=== PATIENT | male | born 1940 ===

== ENCOUNTER 2020-12-31 10:03 | Emergency (ER) | payer MEDICARE, OTHER ==
[2020-12-31] MEDS: Sodium Chloride 0.9% 1,000 ML IV ONE ×2 (10:55→13:17)
--- NOTE | 2020-12-31 11:28 | CT ---
DATE OF SERVICE: 12/31/2020 CLINICAL DATA: Epigastric Pain Unenhanced chest CT: The multi slice acquisition through the chest without IV contrast was performed. Comparison is made to a prior exam dated 29 October 2019. Motion artifact degrades study quality. The 2.0 cm soft tissue nodule noted within the right middle lobe is again seen. It is unchanged in size and appearance from the prior study. There are multiple nodules in the left lower lobe that were present on the prior exam and are unchanged. No new pulmonary nodules. There are mild atelectatic changes in the dependent portion of both lungs and in both lung bases. The lungs are otherwise clear. No areas of consolidation. There is a linear density within the trachea just above the domenic most likely representing mucus. No pneumothorax. No pleural effusion. The heart size is normal. There are mild coronary artery calcifications. No significant pericardial effusion. The no aortic aneurysm. No hilar or mediastinal adenopathy. There is a small hiatal hernia. Impression: Stable chest CT Unenhanced abdomen and pelvic CT: Multi slice axial acquisition without IV contrast was performed. No priors. The unenhanced liver appears normal. No focal hepatic lesions. The gallbladder is abnormal. The gallbladder wall appears thickened. Questionable noncalcified gallstones. Gallbladder ultrasound is recommended. The spleen appears normal. The pancreas appears normal. There is soft tissue fullness of both adrenal glands suggesting adrenal hyperplasia. They appear unchanged from prior chest CT dated 29 October 2019. There is atrophy of both kidneys. No nephrocalcinosis or nephrolithiasis. No hydronephrosis or hydroureter. The bladder is fluid filled. It appears normal. Prostate is mildly enlarged. There is a metallic clip within the prostate. There is gastric wall thickening in the body and fundus of the stomach. This is probably related to nondistention. Gastritis or an infiltrating process should be considered. There is a small hiatal hernia. There is mural thickening of the distal esophagus suggesting esophagitis. The appendix is not dilated. No evidence of appendicitis. There is diverticulosis of the transverse, descending, and sigmoid colon. No evidence of diverticulitis. No free air. No free fluid. No dilated loops of bowel. No adenopathy. No aortic aneurysm. 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 No other significant findings. MTDD
[2020-12-31] MEDS ORDERED: Pantoprazole 80 MG in Sodium Chloride 0.9% 100 ML IV ONE (11:47)
[2020-12-31] MEDS ORDERED: Enoxaparin 150 MG/1 ML Syringe SUBCUT SCH (12:00)
[2020-12-31] MEDS ORDERED: Piperacillin/Tazobactam 3.375 GM in Sodium Chloride 0.9% 50 ML IV SCH (12:15)
[2020-12-31] MEDS ORDERED: Morphine 2 MG/ML SYRINGE IVPUSH ONE ×2 (14:21→17:00)
[2020-12-31] MEDS ORDERED: Morphine 2 MG/ML SYRINGE ONE ×2 (14:30→17:18)
[2020-12-31] MEDS ORDERED: Sodium Chloride 0.9% 1,000 ML IV SCH (14:45)
[2020-12-31] MEDS ORDERED: Ondansetron 4 MG/2 ML SDV IVPUSH ONE (17:00)
--- NOTE | 2020-12-31 17:04 | EDM.PDOC ---
ED HPI GENERAL MEDICAL PROBLEM - General Chief Complaint: General Stated Complaint: FELL 2 DAYS AGO Time Seen by Provider: 12/31/20 10:15 Source of Information: Reports: EMS - History of Present Illness INITIAL COMMENTS - FREE TEXT/NARRATIVE: Pt was found on the floor at home. He states he fell in the [place] about 3 am yesterday. He was too weak to get up again. He did crawl to the couch, but was unable to stand. His son tried to call him, and called another son to check on him. He does have a med alert, but didn't use it. He denies any pain today, just feels tired and was cold. Knee Pain Score (Numeric/FACES): 2 - Related Data Allergies Allergy/AdvReac Type Severity Reaction Status Date / Time No Known Allergies Allergy Verified 12/31/20 11:00 Home Meds: Home Meds amLODIPine [Norvasc] 10 mg PO DAILY 03/14/18 [History] Furosemide [Lasix] 40 mg PO DAILY 12/31/20 [History] Metoprolol Succinate 50 mg PO DAILY 12/31/20 [History] lisinopriL [Lisinopril] 10 mg PO DAILY 12/31/20 [History] Past Medical History HEENT History: Reports: Cataract Cardiovascular History: Reports: Hypertension - Past Surgical History Cardiovascular Surgical History: Reports: None Social & Family History - Tobacco Use Tobacco Use Status *Q: Never Tobacco User Second Hand Smoke Exposure: No - Caffeine Use Caffeine Use: Reports: None - Recreational Drug Use Recreational Drug Use: No ED ROS GENERAL - Review of Systems Review Of Systems: Comprehensive ROS is negative, except as noted in HPI. Constitutional: Reports: Weakness, Fatigue ED EXAM, GENERAL - Physical Exam Exam: See Below Extremities: Other (bruising noted to his left arm. skin is intact.) #1 Interpretation EKG Date: 12/31/20 Time: 11:30 Course - Vital Signs Last Recorded V/S: Last Vital Signs Temp 97.6 F 12/31/20 11:02 Pulse 84 12/31/20 16:22 Resp 18 12/31/20 12:42 BP 82/35 L 12/31/20 16:22 Pulse Ox 93 L 12/31/20 13:31 - Orders/Labs/Meds Orders: Active Orders 24 hr Category Date Time Status Enoxaparin [Lovenox] Med 12/31/20 12:00 Active 150 mg SUBCUT Q12H Piperacillin/Tazobactam [Piperacil-Tazobact] 3.375 gm Med 12/31/20 12:15 Active Sodium Chloride 0.9% [Normal Saline] 50 ml IV Q6H Sodium Chloride 0.9% [Normal Saline] 1,000 ml Med 12/31/20 14:45 Active IV ASDIRECTED Medication Orders Enoxaparin Sodium (Enoxaparin 150 Mg/1 Ml Syringe) 150 mg SUBCUT Q12H [facility] Last Admin: 12/31/20 12:28 Dose: 150 mg Documented by: WEEMAMY Piperacillin Sod/Tazobactam (Sod 3.375 gm/ Sodium Chloride) 50 mls @ 100 mls/hr IV Q6H [facility] Last Admin: 12/31/20 13:11 Dose: 100 mls/hr Documented by: SAMEMAMY Sodium Chloride (Normal Saline) 1,000 mls @ 500 mls/hr IV ASDIRECTED [facility] Last Admin: 12/31/20 14:34 Dose: 500 mls/hr Documented by: CARO Labs: Laboratory Tests 12/31/20 12/31/20 12/31/20 Range/Units 11:15 11:38 11:38 WBC 19.2 H D (4.0-11.0) K/uL RBC 4.87 (4.50-6.50) M/uL Hgb 14.3 (13.0-18.0) g/dL Hct 42.7 (40.0-54.0) % MCV 88 (76-96) fL MCH 29.4 (27.0-32.0) pg MCHC 33.5 (31.0-35.0) g/dL RDW 18.2 H (11.0-16.0) % Plt Count 234 D (150-400) K/uL MPV 10.3 H (6.0-10.0) fL Neut % (Auto) 90.4 H (45.0-70.0) % Lymph % (Auto) 3.0 L (20.0-40.0) % [place] % (Auto) 6.4 (3.0-10.0) % Eos % (Auto) 0.0 L (1.0-5.0) % Baso % (Auto) 0.2 (0.0-0.5) % Neut # (Auto) 17.35 H (2.00-7.50) K/uL Lymph # (Auto) 0.57 L (1.50-4.00) K/uL [place] # (Auto) 1.22 H (0.20-0.80) K/uL Eos # (Auto) 0.00 L (0.04-0.40) K/uL Baso # (Auto) 0.04 (0.02-0.10) K/uL D-Dimer, Quantitative (0-400) ng/mL Sodium (136-145) mmol/L Potassium (3.5-5.1) mmol/L Chloride (98-107) mmol/L Carbon Dioxide (21.0-32.0) mmol/L Anion Gap (5.0-15.0) mmol/L BUN (8-26) mg/dL Creatinine (0.70-1.30) mg/dL Est Cr Clr Drug Dosing mL/min Estimated GFR (MDRD) (>60) MLS/MIN BUN/Creatinine Ratio (6-25) Glucose (74-100) mg/dL Lactic Acid 4.2 H (0.4-2.0) mmol/L Calcium (8.5-10.1) mg/dL Total Bilirubin (0.0-1.0) mg/dL AST (15-37) U/L ALT (12-78) U/L Alkaline Phosphatase (46-116) U/L Creatine Kinase (21-232) U/L Troponin I (0.000-0.060) ng/mL Total Protein (6.4-8.2) g/dL Albumin (3.4-5.0) g/dL Globulin (2.2-4.2) g/dL Albumin/Globulin Ratio (0.8-2.0) Lipase 127 (73-393) U/L Urine Color Urine Appearance (CLEAR) Urine pH (5.0-8.0) Ur Specific [place] (1.003-1.030) Urine Protein (NEGATIVE) mg/dL Urine Glucose (UA) (NEGATIVE) mg/dL Urine Ketones (NEGATIVE) mg/dL Urine Occult Blood (NEGATIVE) Urine Nitrite (NEGATIVE) Urine Bilirubin (NEGATIVE) Urine Urobilinogen (0.2-1.0) E.U./dL Ur Leukocyte Esterase (NEGATIVE) Urine RBC /HPF Urine WBC /HPF Urine Bacteria /HPF SARS-CoV-2 RNA (ROSALVA) (NEGATIVE) 12/31/20 12/31/20 12/31/20 Range/Units 11:38 11:38 11:45 WBC (4.0-11.0) K/uL RBC (4.50-6.50) M/uL Hgb (13.0-18.0) g/dL Hct (40.0-54.0) % MCV (76-96) fL MCH (27.0-32.0) pg MCHC (31.0-35.0) g/dL RDW (11.0-16.0) % Plt Count (150-400) K/uL MPV (6.0-10.0) fL Neut % (Auto) (45.0-70.0) % Lymph % (Auto) (20.0-40.0) % [place] % (Auto) (3.0-10.0) % Eos % (Auto) (1.0-5.0) % Baso % (Auto) (0.0-0.5) % Neut # (Auto) (2.00-7.50) K/uL Lymph # (Auto) (1.50-4.00) K/uL [place] # (Auto) (0.20-0.80) K/uL Eos # (Auto) (0.04-0.40) K/uL Baso # (Auto) (0.02-0.10) K/uL D-Dimer, Quantitative 3790 H (0-400) ng/mL Sodium 138 (136-145) mmol/L Potassium 5.2 H D (3.5-5.1) mmol/L Chloride 107 (98-107) mmol/L Carbon Dioxide 14.9 L* D (21.0-32.0) mmol/L Anion Gap 21.3 H (5.0-15.0) mmol/L BUN 54 H* D (8-26) mg/dL Creatinine 2.72 H D (0.70-1.30) mg/dL Est Cr Clr Drug Dosing 19.16 mL/min Estimated GFR (MDRD) 23 L (>60) MLS/MIN BUN/Creatinine Ratio 19.9 (6-25) Glucose 110 H (74-100) mg/dL Lactic Acid (0.4-2.0) mmol/L Calcium 9.2 (8.5-10.1) mg/dL Total Bilirubin 1.7 H (0.0-1.0) mg/dL AST 28 (15-37) U/L ALT 26 (12-78) U/L Alkaline Phosphatase 95 (46-116) U/L Creatine Kinase 909 H (21-232) U/L Troponin I < 0.017 D (0.000-0.060) ng/mL Total Protein 7.8 (6.4-8.2) g/dL Albumin 3.5 (3.4-5.0) g/dL Globulin 4.3 H (2.2-4.2) g/dL Albumin/Globulin Ratio 0.8 (0.8-2.0) Lipase (73-393) U/L Urine Color Urine Appearance (CLEAR) Urine pH (5.0-8.0) Ur Specific [place] (1.003-1.030) Urine Protein (NEGATIVE) mg/dL Urine Glucose (UA) (NEGATIVE) mg/dL Urine Ketones (NEGATIVE) mg/dL Urine Occult Blood (NEGATIVE) Urine Nitrite (NEGATIVE) Urine Bilirubin (NEGATIVE) Urine Urobilinogen (0.2-1.0) E.U./dL Ur Leukocyte Esterase (NEGATIVE) Urine RBC /HPF Urine WBC /HPF Urine Bacteria /HPF SARS-CoV-2 RNA (ROSALVA) (NEGATIVE) 12/31/20 12/31/20 12/31/20 Range/Units 12:11 13:45 16:00 WBC (4.0-11.0) K/uL RBC (4.50-6.50) M/uL Hgb (13.0-18.0) g/dL Hct (40.0-54.0) % MCV (76-96) fL MCH (27.0-32.0) pg MCHC (31.0-35.0) g/dL RDW (11.0-16.0) % Plt Count (150-400) K/uL MPV (6.0-10.0) fL Neut % (Auto) (45.0-70.0) % Lymph % (Auto) (20.0-40.0) % [place] % (Auto) (3.0-10.0) % Eos % (Auto) (1.0-5.0) % Baso % (Auto) (0.0-0.5) % Neut # (Auto) (2.00-7.50) K/uL Lymph # (Auto) (1.50-4.00) K/uL [place] # (Auto) (0.20-0.80) K/uL Eos # (Auto) (0.04-0.40) K/uL Baso # (Auto) (0.02-0.10) K/uL D-Dimer, Quantitative (0-400) ng/mL Sodium (136-145) mmol/L Potassium (3.5-5.1) mmol/L Chloride (98-107) mmol/L Carbon Dioxide (21.0-32.0) mmol/L Anion Gap (5.0-15.0) mmol/L BUN (8-26) mg/dL Creatinine (0.70-1.30) mg/dL Est Cr Clr Drug Dosing mL/min Estimated GFR (MDRD) (>60) MLS/MIN BUN/Creatinine Ratio (6-25) Glucose (74-100) mg/dL Lactic Acid 1.3 (0.4-2.0) mmol/L Calcium (8.5-10.1) mg/dL Total Bilirubin (0.0-1.0) mg/dL AST (15-37) U/L ALT (12-78) U/L Alkaline Phosphatase (46-116) U/L Creatine Kinase (21-232) U/L Troponin I (0.000-0.060) ng/mL Total Protein (6.4-8.2) g/dL Albumin (3.4-5.0) g/dL Globulin (2.2-4.2) g/dL Albumin/Globulin Ratio (0.8-2.0) Lipase (73-393) U/L Urine Color Yellow Urine Appearance Clear (CLEAR) Urine pH 5.0 (5.0-8.0) Ur Specific [place] 1.025 (1.003-1.030) Urine Protein Negative (NEGATIVE) mg/dL Urine Glucose (UA) Negative (NEGATIVE) mg/dL Urine Ketones Negative (NEGATIVE) mg/dL Urine Occult Blood Trace-intact H (NEGATIVE) Urine Nitrite Negative (NEGATIVE) Urine Bilirubin Negative (NEGATIVE) Urine Urobilinogen 0.2 (0.2-1.0) E.U./dL Ur Leukocyte Esterase Negative (NEGATIVE) Urine RBC 0-5 H /HPF Urine WBC Not seen /HPF Urine Bacteria Rare /HPF SARS-CoV-2 RNA (ROSALVA) Negative (NEGATIVE) Meds: Medications Generic Name Dose Route Start Last Admin Trade Name Freq PRN Reason Stop Dose Admin Enoxaparin Sodium 150 mg 12/31/20 12:00 12/31/20 12:28 Enoxaparin 150 Mg/1 Ml Syringe SUBCUT 150 mg Q12H MINNA Administration Piperacillin Sod/Tazobactam 50 mls @ 100 mls/hr 12/31/20 12:15 12/31/20 13:11 Sod 3.375 gm/ Sodium Chloride IV 100 mls/hr Q6H MINNA Administration Sodium Chloride 1,000 mls @ 500 mls/hr 12/31/20 14:45 12/31/20 14:34 Normal Saline IV 500 mls/hr ASDIRECTED MINNA Administration Discontinued Medications Generic Name Dose Route Start Last Admin Trade Name Freq PRN Reason Stop Dose Admin Sodium Chloride 1,000 mls @ 500 mls/hr 12/31/20 10:22 12/31/20 13:17 Normal Saline IV 12/31/20 12:21 999 mls/hr .BOLUS ONE Administration Pantoprazole Sodium 80 mg/ 100 mls @ 200 mls/hr 12/31/20 11:47 12/31/20 12:23 Sodium Chloride IV 12/31/20 12:16 200 mls/hr .BOLUS ONE Administration Morphine Sulfate Confirm 12/31/20 14:30 12/31/20 14:26 Morphine 2 Mg/Ml Syringe Administered 12/31/20 14:31 Not Given Dose 2 mg .ROUTE .STK-MED ONE Morphine Sulfate 2 mg 12/31/20 14:21 12/31/20 14:23 Morphine 2 Mg/Ml Syringe IVPUSH 12/31/20 14:22 2 mg ONETIME ONE Administration - Re-Assessments/Exams Free Text/Narrative Re-Assessment/Exam: 12/31/20 17:00 Labs show his Lactic acid is 4.2 - WBC 19,200 - D dimer 3790 - CK 909. He was started on fluids, given 3 liters of NS. Zosyn was given x 1 dose. I did call multiple referral centers, and Dr Galdamez from [facility] accepted him. A second Lactic was done 3 hours later and is now 1.5 His BP remains low but Dr Galdamez decided with the lower Lactic acid he did not need to be on a pressor, like Levophed. Pt will be transferred to [facility] by [facility]. He remains alert and talkative throughout his stay here. Departure - Departure Time of Disposition: 17:15 Disposition: DC/Tfer to [facility] 02 Clinical Impression: Sepsis associated hypotension Acute kidney failure Qualifiers: Acute renal failure type: unspecified Qualified Code(s): N17.9 - Acute kidney failure, unspecified - Discharge Information *PRESCRIPTION DRUG MONITORING PROGRAM REVIEWED*: Yes *COPY OF PRESCRIPTION DRUG MONITORING REPORT IN PATIENT ANNAMARIE: Yes Referrals: PCP,None [Primary Care Provider] - Sepsis Event Note (ED) - Evaluation Sepsis Screening Result: No Definite Risk - Focused Exam Vital Signs: Vital Signs Temp Pulse Resp BP Pulse Ox 12/31/20 16:22 84 82/35 L 12/31/20 16:10 83 87/32 L 12/31/20 16:00 82 94/37 L 12/31/20 15:40 79 65/38 L 12/31/20 15:30 81 76/33 L 12/31/20 14:50 96 84/66 L 12/31/20 14:40 80 103/46 L 12/31/20 14:30 80 95/36 L 12/31/20 14:20 82 104/40 L 12/31/20 14:10 82 115/43 L 12/31/20 14:00 109/46 L 12/31/20 13:50 102/45 L 12/31/20 13:31 82 85/43 L 93 L 12/31/20 13:25 78 87/22 L 96 12/31/20 12:50 79 105/39 L 98 12/31/20 12:42 75 18 91/49 L 98 12/31/20 11:35 87 18 103/28 L 97 12/31/20 11:15 87 69/45 L 97 12/31/20 11:02 97.6 F 94 18 101/66 12/31/20 10:19 91 111/60 97 - My Orders Last 24 Hours: My Active Orders 12/31/20 12:00 Enoxaparin [Lovenox] 150 mg SUBCUT Q12H 12/31/20 12:15 Piperacillin/Tazobactam [Piperacil-Tazobact] 3.375 gm Sodium Chloride 0.9% [Normal Saline] 50 ml IV Q6H 12/31/20 14:45 Sodium Chloride 0.9% [Normal Saline] 1,000 ml IV ASDIRECTED - Assessment/Plan Last 24 Hours: My Active Orders 12/31/20 12:00 Enoxaparin [Lovenox] 150 mg SUBCUT Q12H 12/31/20 12:15 Piperacillin/Tazobactam [Piperacil-Tazobact] 3.375 gm Sodium Chloride 0.9% [Normal Saline] 50 ml IV Q6H 12/31/20 14:45 Sodium Chloride 0.9% [Normal Saline] 1,000 ml IV ASDIRECTED
[2020-12-31] MEDS ORDERED: Ondansetron 4 MG/2 ML SDV ONE (17:18)
== END 2020-12-31 17:55 ==
LOC: LB.ED 10:03
DX: A41.9 Sepsis, unspecified organism (principal); N17.9 Acute kidney failure, unspecified; I95.9 Hypotension, unspecified; I10 Essential (primary) hypertension; Z79.899 Other long term (current) drug therapy; Z20.822 Contact with and (suspected) exposure to COVID-19
CPT/HCPCS: 36415; 71250; 74176; 80053; 81001; 82550; 83605; 83690; 84484; 85025; 85379; 93005; 96365; 96367; 96375; 96376; 99285; C9113; J1650; J2270; J2405; J2543; J7030; U0002; A0425; A0429

== ENCOUNTER 2021-01-06 14:21 | Inpatient (IN) | payer MEDICARE, OTHER ==
--- NOTE | 2021-01-06 19:58 | PCM.HP.2 ---
H&P History of Present Illness - General Date of Service: 01/07/21 Admit Problem/Dx: Weakness, physical therapy Source of Information: Patient History Limitations: Reports: No Limitations - History of Present Illness Initial Comments - Free Text/Narative: 80-year-old male was admitted to inpatient care for weakness and physical therapy secondary to a fall that occurred on 12/29/2020. Patient still ex periencing weakness standing up, walking that is associated with dyspnea on exertion. Positive for: Dark/black stools, shortness of breath with walking. Patient denies: Chest pain, syncope/near syncope, dizzy/lightheaded, constipation/diarrhea, changes to urinary color frequency volume smell, additional trauma since his fall, muscle skeletal pain. - Related Data Allergies/Adverse Reactions: Allergies Allergy/AdvReac Type Severity Reaction Status Date / Time No Known Allergies Allergy Verified 12/31/20 11:00 Home Medications: Home Meds amLODIPine [Norvasc] 10 mg PO DAILY 03/14/18 [History] Furosemide [Lasix] 40 mg PO DAILY 12/31/20 [History] Metoprolol Succinate 50 mg PO DAILY 12/31/20 [History] lisinopriL [Lisinopril] 10 mg PO DAILY 12/31/20 [History] Past Medical History HEENT History: Reports: Cataract Cardiovascular History: Reports: Hypertension - Past Surgical History Cardiovascular Surgical History: Reports: None Social & Family History - Caffeine Use Caffeine Use: Reports: None H&P Review of Systems - Review of Systems: Review Of Systems: See Below General: Reports: Weakness HEENT: Reports: No Symptoms Pulmonary: Reports: Shortness of Breath Cardiovascular: Reports: Dyspnea on Exertion Gastrointestinal: Reports: Black Stool. Denies: Abdominal Pain, Bloody Stool, Constipation, Diarrhea, Decreased Appetite, Nausea, Vomiting Genitourinary: Reports: Frequency (Due to his water pill) Musculoskeletal: Reports: No Symptoms, Other Skin: Reports: Bruising Psychiatric: Reports: No Symptoms Neurological: Reports: Weakness Hematologic/Lymphatic: Reports: Easy Bruising Immunologic: Reports: No Symptoms Exam - Exam Exam: See Below - Exam General: Alert, Oriented, Cooperative HEENT: PERRLA, EOMI, Hearing Intact Neck: Trachea Midline Lungs: Clear to Auscultation, Normal Respiratory Effort. No: Crackles, Rales, Rhonchi, Rub, Stridor, Wheezing Cardiovascular: Regular Rate, Regular Rhythm GI/Abdominal Exam: Soft, Non-Tender, No Organomegaly, No Distention, No Mass, Other (Patient just ate hyperactive bowel sounds). No: Normal Bowel Sounds (Male) Exam: Deferred Rectal (Males) Exam: Deferred Extremities: Pedal Edema (Right ankle +1), Joint Swelling (Right ankle), Other (Minor tenderness to palpation right ankle) Skin: Warm, Dry, Intact Neurological: Normal Gait, Normal Speech, Normal Tone Neuro Extensive - Mental Status: Alert, Oriented x3, Normal Mood/Affect, Normal Cognition, Memory Intact Psychiatric: Alert, Normal Affect, Normal Mood *Q Meaningful Use (ADM) - VTE Risk Assess *Q Each Risk Factor Represents 1 Point: Obesity ( BMI > 25 kg/m2) Total Score 1 Point Risk Factors: 1 Each Risk Factor Represents 2 Points: None Total Score 2 Point Risk Factors: 0 Each Risk Factor Represents 3 Points: Age 75 Years or Greater Total Score 3 Point Risk Factors: 3 Each Risk Factor Represents 5 Points: None Total Score 5 Point Risk Factors: 0 Venous Thromboembolism Risk Factor Score *Q: 4 Problem List Initiated/Reviewed/Updated: No Orders Last 24hrs: Assessment: 1. Generalized weakness secondary to his fall 2. Dyspnea on exertion. 3. Dark stools (possible GI bleed) 4. Assess patient for ADLs Plan: Physical therapy and Occupational Therapy to address weakness, dyspnea on exertion and ADLs. Perform Hemoccult on stool specimen to ascertain if there is blood in the stool.
[2021-01-06] MEDS: amLODIPine 10 MG Tab PO SCH (21:57)
[2021-01-07] MEDS: Metoprolol Succinate 50 MG Tab.ER PO SCH (08:04)
[2021-01-07] MEDS: Lisinopril 10 MG Tab PO SCH (08:04)
[2021-01-07] MEDS: Furosemide 40 MG Tab PO SCH (08:04)
[2021-01-07] MEDS: amLODIPine 10 MG Tab PO SCH (20:00)
[2021-01-08] MEDS: Furosemide 40 MG Tab PO SCH (08:03)
[2021-01-08] MEDS: Metoprolol Succinate 50 MG Tab.ER PO SCH (08:04)
[2021-01-08] MEDS: Lisinopril 10 MG Tab PO SCH (08:04)
[2021-01-08] MEDS: amLODIPine 10 MG Tab PO SCH (19:47)
[2021-01-08] MEDS ORDERED: LORazepam 1 MG Tab PO PRN (20:49)
[2021-01-09] MEDS: Metoprolol Succinate 50 MG Tab.ER PO SCH (08:22)
[2021-01-09] MEDS: Lisinopril 10 MG Tab PO SCH (08:22)
[2021-01-09] MEDS: Furosemide 40 MG Tab PO SCH (08:23)
[2021-01-09] MEDS ORDERED: Melatonin 3 MG Tab PO PRN (19:20)
[2021-01-09] MEDS ORDERED: diphenhydrAMINE 25 MG Cap PO PRN (19:20)
[2021-01-09] MEDS: amLODIPine 10 MG Tab PO SCH (19:48)
[2021-01-10] MEDS: Lisinopril 10 MG Tab PO SCH (08:35)
[2021-01-10] MEDS: Furosemide 40 MG Tab PO SCH (08:36)
[2021-01-10] MEDS: Metoprolol Succinate 50 MG Tab.ER PO SCH (08:37)
[2021-01-10] MEDS: amLODIPine 10 MG Tab PO SCH (20:15)
[2021-01-11] MEDS: Metoprolol Succinate 50 MG Tab.ER PO SCH (08:02)
[2021-01-11] MEDS: Furosemide 40 MG Tab PO SCH (08:03)
[2021-01-11] MEDS: Lisinopril 10 MG Tab PO SCH (08:03)
[2021-01-11] MEDS: amLODIPine 10 MG Tab PO SCH (20:05)
[2021-01-12] MEDS: Metoprolol Succinate 50 MG Tab.ER PO SCH (07:38)
[2021-01-12] MEDS: Lisinopril 10 MG Tab PO SCH (07:38)
[2021-01-12] MEDS: Furosemide 40 MG Tab PO SCH (07:38)
[2021-01-12] MEDS ORDERED: Tuberculin, PPD 5 Units/0.1 ML 1 ML MDV IDERM ONE (14:03)
[2021-01-12] MEDS: amLODIPine 10 MG Tab PO SCH (20:31)
[2021-01-13] MEDS: Metoprolol Succinate 50 MG Tab.ER PO SCH (08:05)
[2021-01-13] MEDS: Furosemide 40 MG Tab PO SCH (08:06)
[2021-01-13] MEDS: Lisinopril 10 MG Tab PO SCH (08:07)
--- NOTE | 2021-01-13 09:56 | PCM.PN ---
- General Info Date of Service: 01/13/21 Admission Dx/Problem (Free Text): Weakness, physical therapy Subjective Update: Mamadou says that he has no pain, and feels ready to go home. Patient states that he is eating well, getting plenty of fluid intake. Patient states that bowel movements are normal, urination is normal. And that he has no complaints at this time. Patient is feeling strong enough to accomplish his ADLs. States that he is using his walker now that has been adjusted for him and plans to use it as necessary but will rely on his cane as his primary device for balance during motion. Functional Status: Reports: Ambulating, Urinating, New Symptoms (Concerned that his right leg was a slightly swollen last night took his socks off was better this morning) Pain Score: 0 - Review of Systems General: Reports: No Symptoms HEENT: Reports: No Symptoms Pulmonary: Reports: No Symptoms Cardiovascular: Reports: No Symptoms Gastrointestinal: Reports: No Symptoms Genitourinary: Reports: No Symptoms Musculoskeletal: Reports: No Symptoms Skin: Reports: No Symptoms Neurological: Reports: No Symptoms Psychiatric: Reports: No Symptoms - Patient Data Vitals - Most Recent: Last Vital Signs Temp 97.8 F 01/13/21 08:00 Pulse 62 01/13/21 08:05 Resp 16 01/13/21 08:00 BP 116/55 L 01/13/21 08:07 Pulse Ox 96 01/13/21 08:00 Weight - Most Recent: 263 lb Med Orders - Current: Current Medications Amlodipine Besylate (Amlodipine 10 Mg Tab) 10 mg PO BEDTIME REPLACED BY [facility] Last Admin: 01/12/21 20:31 Dose: 10 mg Documented by: Diphenhydramine HCl (Diphenhydramine 25 Mg Cap) 25 mg PO BEDTIME PRN PRN Reason: Insomnia Furosemide (Furosemide 40 Mg Tab) 40 mg PO DAILY REPLACED BY [facility] Last Admin: 01/13/21 08:06 Dose: 40 mg Documented by: Lisinopril (Lisinopril 10 Mg Tab) 10 mg PO DAILY REPLACED BY [facility] Last Admin: 01/13/21 08:07 Dose: 10 mg Documented by: Lorazepam (Lorazepam 1 Mg Tab) 1 mg PO BEDTIME PRN PRN Reason: Insomnia Last Admin: 01/08/21 21:13 Dose: 1 mg Documented by: Melatonin (Melatonin 3 Mg Tab) 6 mg PO BEDTIME PRN PRN Reason: Insomnia Last Admin: 01/09/21 19:40 Dose: 6 mg Documented by: Metoprolol Succinate (Metoprolol Succinate 50 Mg Tab.Er) 50 mg PO DAILY MINNA Last Admin: 01/13/21 08:05 Dose: 50 mg Documented by: Discontinued Medications Tuberculin PPD (Tuberculin, Ppd 5 Units/0.1 Ml 1 Ml Mdv) 5 unit IDERM ONETIME ONE Stop: 01/12/21 14:04 Last Admin: 01/12/21 14:12 Dose: 5 unit Documented by: - Exam General: Alert, Oriented HEENT: Pupils Equal, Pupils Reactive, EOMI, Mucous Membr. Moist/[place] Lungs: Clear to Auscultation, Normal Respiratory Effort Cardiovascular: Regular Rate (None), Regular Rhythm GI/Abdominal Exam: Soft, Non-Tender Extremities: Pedal Edema (+1 bilateral) Skin: Warm, Dry, Intact Sepsis Event Note - Evaluation Sepsis Screening Result: No Definite Risk - Focused Exam Vital Signs: Vital Signs Temp Pulse Pulse Resp BP BP Pulse Ox 01/13/21 08:07 116/55 L 01/13/21 08:05 62 116/55 L 01/13/21 08:00 97.8 F 96 16 116/55 L 96 - Problem List Review Problem List Initiated/Reviewed/Updated: Yes - Assessment Assessment:: Patient was admitted to [facility] for strengthening/PT/OT secondary to a fall, prior to returning home. Patient has completed his strengthening with PT/OT, feels co nfident about going home and his ability to do his ADLs. Patient has no pain. His only concern was that his right leg was slightly swollen yesterday. He took off his sock last night and this morning his swelling is much improved. He is unsure if this is a normal occurrence for him. Mamadou appears healthy enough to return home, plans are in place for a friend to check up on him on a regular ba sis. Patient will be using his walker and/or cane for walking. No medical concerns noted at this time. - Plan Plan:: ABC, history, exam, discussion regarding movement/Home environment/social network, patient understands risks associated with returning home and is ready to do so, due to transportation patient is plan to be discharged to home in stable condition on Sunday
[2021-01-13] MEDS: amLODIPine 10 MG Tab PO SCH (20:06)
[2021-01-14] MEDS: Lisinopril 10 MG Tab PO SCH (08:27)
[2021-01-14] MEDS: Metoprolol Succinate 50 MG Tab.ER PO SCH (08:28)
[2021-01-14] MEDS: Furosemide 40 MG Tab PO SCH (08:28)
[2021-01-14] MEDS: amLODIPine 10 MG Tab PO SCH (20:25)
[2021-01-15] MEDS: Lisinopril 10 MG Tab PO SCH (08:12)
[2021-01-15] MEDS: Furosemide 40 MG Tab PO SCH (08:12)
[2021-01-15] MEDS: Metoprolol Succinate 50 MG Tab.ER PO SCH (08:15)
[2021-01-16] MEDS ORDERED: amLODIPine 2.5 MG Tab PO SCH (08:00)
[2021-01-16] MEDS ORDERED: Furosemide 40 MG Tab PO SCH (08:00)
[2021-01-16] MEDS ORDERED: Metoprolol Succinate 50 MG Tab.ER PO SCH (08:00)
[2021-01-16] MEDS ORDERED: Lisinopril 10 MG Tab PO SCH (08:00)
== END 2021-01-15 17:55 | disposition home or self-care (01) | DRG 948 ==
LOC: UNDOADMIN 19:41 → LB.MS 19:41 → UNDOADMIN 19:51 → LB.MS 19:51
PROVIDERS: ADMIT Physician Assistant; ATTEND Physician Assistant
DX: R53.81 Other malaise (principal); I10 Essential (primary) hypertension; R06.09 Other forms of dyspnea; Z20.822 Contact with and (suspected) exposure to COVID-19; Z79.899 Other long term (current) drug therapy; Z98.49 Cataract extraction status, unspecified eye
CPT/HCPCS: 82272; 86580; 97110-GP; 97116-GP; 97161-GP; 97165-GO; 97530-GO; 97530-GP; 97535-GO; A9270-GY; U0002

== ENCOUNTER 2021-12-20 21:20 | Inpatient (IN) | payer MEDICARE, OTHER ==
[2021-12-20] MEDS ORDERED: HYDROmorphone 2 MG/ML Syringe IVPUSH ONE (21:45)
[2021-12-20] MEDS ORDERED: Sodium Chloride 0.9% 250 ML IV SCH (21:45)
[2021-12-20] MEDS ORDERED: Diphtheria,Pertussis(Acell),Tetanus Vaccine 0.5 ML SDV IM ONE (21:45)
[2022-01-24 12:07] LABS: ESTIMATED GFR 22 mL/min (>60)
[2022-01-24 13:21] LABS: ESTIMATED GFR 31 mL/min (>60)
[2022-01-24 13:37] LABS: ESTIMATED GFR 30 mL/min (>60)
[2022-01-24 13:52] LABS: ESTIMATED GFR 28 mL/min (>60)
== END 2021-12-27 16:15 | disposition home or self-care (01) | DRG 641 ==
LOC: LB.ED 21:20 → LB.ZCENSUS 23:30 → EDSTATUS 01-19 14:15
DX: E86.0 Dehydration (principal); S61.402A Unspecified open wound of left hand, initial encounter; E87.5 Hyperkalemia; Z20.822 Contact with and (suspected) exposure to COVID-19; R79.89 Other specified abnormal findings of blood chemistry; R74.02 Elevation of levels of lactic acid dehydrogenase [LDH]; R41.82 Altered mental status, unspecified; W19.XXXA Unspecified fall, initial encounter
CPT/HCPCS: 36415; 70450; 73502-LT; 73610-LT; 80048; 80053; 81001; 83605; 83735; 85025; 85027; 97110-GP; 97116-GP; 97161-GP; 97165-GO; 97530-GO; 97530-GP; 97535-GO; A0425; A0429; U0002

== ENCOUNTER 2022-11-17 13:57 | Emergency (ER) | payer MEDICARE, OTHER ==
[2022-11-17] MEDS ORDERED: Sodium Chloride 0.9% 10 ML Syringe FLUSH PRN (14:00)
[2022-11-17] MEDS: Aspirin 81 MG Tab.Chew PO ONE (14:23)
[2022-11-17 14:30] LABS: HEMATOCRIT 39.5 % (40.0-54.0); MEAN CORPUSCULAR HGB CONC 32.9 g/dL (31.0-35.0); MEAN PLATELET VOLUME 11.1 fL (6.0-10.0); RED BLOOD CELL COUNT 4.33 M/uL (4.50-6.50); RED CELL DISTRIBUTION WIDTH 15.5 % (11.0-16.0); WHITE BLOOD CELL COUNT,WBC 12.9 K/uL (4.0-11.0)
[2022-11-17] MEDS: Heparin Sodium/D5W 25,000 UNITS/500 ML BAG IV SCH (14:40)
[2022-11-17] MEDS: Heparin Sodium 5,000 Units/ML Vial IVPUSH ONE (14:40)
[2022-11-17] MEDS: Sodium Chloride 0.9% 1,000 ML IV SCH (15:00)
[2022-11-17 15:03] LABS: A/G RATIO 0.6 (0.8-2.0); ALANINE AMINOTRANSFERASE,ALT 62 U/L (12-78); ALBUMIN 2.7 g/dL (3.4-5.0); ALKALINE PHOSPHATASE 142 U/L (46-116); ANION GAP 19.1 mmol/L (5.0-15.0); ASPARTATE AMNIOTRANSFERASE,AST 112 U/L (15-37); BILIRUBIN TOTAL 0.6 mg/dL (0.0-1.0); BUN/CREATININE RATIO 19.6 (6-25); CALCIUM 8.3 mg/dL (8.5-10.1); CARBON DIOXIDE,CO2 17.2 mmol/L (21.0-32.0); CHLORIDE,CL 102 mmol/L (98-107); EST CRCL DRUG DOSING (CG) 14.74 mL/min; ESTIMATED GFR 17 mL/min (>60); GLUCOSE RANDOM 139 mg/dL (74-100); MAGNESIUM 2.7 mg/dL (1.8-2.4); POTASSIUM,K 5.3 mmol/L (3.5-5.1); PROTEIN TOTAL,TP 7.6 g/dL (6.4-8.2); SODIUM,NA 133 mmol/L (136-145)
[2022-11-17 15:05] LABS: BLOOD UREA NITROGEN,BUN 67 mg/dL (8-26)
[2022-11-17 15:06] LABS: CREATININE 3.42 mg/dL (0.70-1.30); TROPONIN I HIGH SENSITIVITY > 25000.0 pg/ml (<=60.4)
[2022-11-17] MEDS: atorvaSTATin 80 MG Tab PO ONE (15:43)
== END 2022-11-17 16:25 ==
LOC: LB.ED 13:57
DX: I21.09 ST elevation (STEMI) myocardial infarction involving other coronary artery of anterior wall (principal); I10 Essential (primary) hypertension; Z79.899 Other long term (current) drug therapy
CPT/HCPCS: 36415; 71045; 80053; 83735; 84100; 84484; 85027; 85379; 93005; 96365; 96366; 99285-25; A9270-GY; J1644; J7030